=== PATIENT | female | born 1970 | race Caucasian/White ===

== ENCOUNTER 2019-02-12 22:22 | Observation (INO) ==
[2019-02-12] MEDS ORDERED: Nitroglycerin 1 INCH/GM PACKET TP ONE (23:26)
[2019-02-12] MEDS ORDERED: Aspirin 81 MG TAB.CHEW PO ONE (23:26)
[2019-02-12] MEDS ORDERED: 0.9 % Sodium Chloride 500 ML IVC ONE (23:26)
[2019-02-13 00:18] LABS: BUN/Creatinine Ratio 24 (6-26); Blood Urea Nitrogen 22 mg/dL (6-20); Calcium 9.5 mg/dL (8.6-10.3); Carbon Dioxide 26 mEq/L (23-29); Chloride 105 mEq/L (98-107); Glucose 103 mg/dL (70-105); Osmolality,Calculated 290 (280-300); Potassium 4.1 mEq/L (3.5-5.1); Sodium 138 mEq/L (136-145); Troponin I < 0.03 ng/mL (< 0.04); eGFR For African Americans > 60 (> 60); eGFR For Non-African Americans > 60 (> 60)
[2019-02-13 00:33] LABS: Prothrombin Time 11.2 Seconds (9.4-12.1)
[2019-02-13 00:35] LABS: Basophils # 0.1 K/mcL (0.0-0.2); Basophils % 0.6 %; Eosinophils % 0.1 %; Hematocrit 44.5 % (35.3-44.9); Immature Granulocytes % 0.9 % (0-4); Lymphocytes # 1.3 K/mcL (0.6-4.6); Lymphocytes % 15.1 %; Mean Corpuscular HGB Conc 33.7 g/dL (31.6-35.5); Mean Platelet Volume 9.6 fL (9.4-12.4); Monocytes # 0.6 K/mcL (0.0-1.3); Monocytes % 6.4 %; Neutrophils # 6.6 K/mcL (1.6-8.9); Platelet Count 278 K/mcL (140-400); Red Blood Count 4.54 M/mcL (3.82-4.97); Red Cell Distribution Width 13.4 % (11.5-14.5); Segmented Neutrophils % 76.9 %; White Blood Count 8.6 K/mcL (4.3-11.1)
[2019-02-13] MEDS ORDERED: Naloxone 0.4 MG/ML INJ IVP PRN (01:24)
[2019-02-13 03:17] LABS: Hematocrit 44.1 % (35.3-44.9); Hemoglobin 14.2 g/dL (11.5-15.4); Mean Corpuscular HGB Conc 32.2 g/dL (31.6-35.5); Mean Corpuscular Hemoglobin 32.2 pg (28.0-33.3); Mean Platelet Volume 9.6 fL (9.4-12.4); Platelet Count 266 K/mcL (140-400); Red Blood Count 4.41 M/mcL (3.82-4.97); Red Cell Distribution Width 13.3 % (11.5-14.5); White Blood Count 10.4 K/mcL (4.3-11.1)
[2019-02-13 03:21] LABS: Activated Partial Thrombo Time 26.8 Seconds (26.0-36.0)
[2019-02-13] MEDS: *HR* HYDROcodone/Acet 7.5/325 mg TABLET PO SCH ×6 (03:22→20:59)
[2019-02-13 03:37] LABS: BUN/Creatinine Ratio 29 (6-26); Blood Urea Nitrogen 21 mg/dL (6-20); Calcium 9.3 mg/dL (8.6-10.3); Carbon Dioxide 23 mEq/L (23-29); Chloride 106 mEq/L (98-107); Chol/HDL Ratio 6.1 (0-4.9); Cholesterol 201 mg/dL (< 200); Glucose 103 mg/dL (70-105); HDL Cholesterol 33 mg/dL (40-59); LDL Cholesterol,Calculated 111 mg/dL (0-99); Osmolality,Calculated 291 (280-300); Sodium 139 mEq/L (136-145); Triglycerides 285 mg/dL (< 150); eGFR For African Americans > 60 (> 60); eGFR For Non-African Americans > 60 (> 60)
[2019-02-13 03:50] LABS: Thyroid Stimulating Hormone 0.421 mcIU/mL (0.340-5.600)
[2019-02-13] MEDS: *HR* Heparin 5,000 UNIT/ML VIAL SQ SCH ×3 (05:28→20:59)
[2019-02-13] MEDS ORDERED: Regadenoson 0.4 MG/5 ML SYRINGE IVP ONE (07:26)
[2019-02-13] MEDS: amLODIPine 5 MG TABLET PO SCH (10:24)
[2019-02-13] MEDS: hydroCHLOROthiazide 25 MG TABLET PO SCH (10:25)
[2019-02-13] MEDS: Lisinopril 20 MG TABLET PO SCH (10:25)
[2019-02-13] MEDS: Gabapentin 400 MG CAPSULE PO SCH ×4 (10:25→20:59)
[2019-02-13] MEDS: Metoprolol 100 MG TABLET PO SCH (10:25)
[2019-02-14] MEDS: *HR* Heparin 5,000 UNIT/ML VIAL SQ SCH ×2 (05:02→13:30)
[2019-02-14] MEDS: *HR* HYDROcodone/Acet 7.5/325 mg TABLET PO SCH ×3 (05:17→17:11)
[2019-02-14 06:55] LABS: Hemoglobin 13.5 g/dL (11.5-15.4); Mean Corpuscular HGB Conc 32.1 g/dL (31.6-35.5); Mean Corpuscular Hemoglobin 32.2 pg (28.0-33.3); Mean Corpuscular Volume 100.2 fL (83.0-100.0); Mean Platelet Volume 9.5 fL (9.4-12.4); Platelet Count 228 K/mcL (140-400); Red Blood Count 4.19 M/mcL (3.82-4.97); Red Cell Distribution Width 13.3 % (11.5-14.5); White Blood Count 7.5 K/mcL (4.3-11.1)
[2019-02-14 07:27] LABS: BUN/Creatinine Ratio 28 (6-26); Blood Urea Nitrogen 19 mg/dL (6-20); Calcium 9.3 mg/dL (8.6-10.3); Carbon Dioxide 26 mEq/L (23-29); Chloride 103 mEq/L (98-107); Glucose 94 mg/dL (70-105); Osmolality,Calculated 290 (280-300); Potassium 3.9 mEq/L (3.5-5.1); Sodium 139 mEq/L (136-145); eGFR For African Americans > 60 (> 60); eGFR For Non-African Americans > 60 (> 60)
[2019-02-14] MEDS: Gabapentin 400 MG CAPSULE PO SCH ×3 (08:22→17:11)
[2019-02-14] MEDS: amLODIPine 5 MG TABLET PO SCH (08:22)
[2019-02-14] MEDS: Metoprolol 100 MG TABLET PO SCH (08:22)
[2019-02-14] MEDS: hydroCHLOROthiazide 25 MG TABLET PO SCH (08:22)
[2019-02-14] MEDS: Lisinopril 20 MG TABLET PO SCH (08:22)
[2019-02-14 15:45] VITALS: BP 141/82
[2019-02-15] MEDS ORDERED: Aspirin 81 MG TAB.CHEW PO SCH (09:00)
== END 2019-02-14 18:23 | disposition home or self-care (01) ==
LOC: 3BNU 22:22 → EMEROOARM 22:22 → SUATTDRO 02-13 01:11 → 3BNU 02-13 02:00
PROVIDERS: ADMIT Internal Medicine; ATTEND Internal Medicine

== ENCOUNTER 2019-02-25 22:24 | Observation (INO) ==
[2019-02-25 22:52] LABS: Bilirubin,Urine Negative (Negative); Blood,Urine Negative (Negative); Clarity,Urine Cloudy (Clear); Color,Urine Yellow (Yellow); Glucose,Urine (UA) Normal (Normal); Ketones,Urine Negative (Negative); Leukocyte Esterase,Urine Moderate (Negative); Nitrite,Urine Positive (Negative); Protein,Urine Trace mg/dL (Neg-Trace); Specific Gravity,Urine 1.023 (1.010-1.025); Urobilinogen,Urine Normal (Normal)
[2019-02-25 22:54] LABS: Bacteria,Urine Many per hpf (None-Few); Hyaline Casts,Urine Few per lpf (None-Few); Squamous Epithelial Cell,Urine Many per lpf (None-Few); WBC,Urine 30-50 per hpf (0-3)
[2019-02-25 22:58] LABS: Basophils % 0.4 %; Eosinophils % 0.2 %; Hematocrit 43.3 % (35.3-44.9); Hemoglobin 14.4 g/dL (11.5-15.4); Immature Granulocytes % 0.7 % (0-4); Lymphocytes # 2.4 K/mcL (0.6-4.6); Lymphocytes % 24.8 %; Mean Corpuscular HGB Conc 33.3 g/dL (31.6-35.5); Mean Corpuscular Hemoglobin 32.7 pg (28.0-33.3); Mean Corpuscular Volume 98.4 fL (83.0-100.0); Mean Platelet Volume 9.4 fL (9.4-12.4); Monocytes # 0.7 K/mcL (0.0-1.3); Monocytes % 6.9 %; Neutrophils # 6.3 K/mcL (1.6-8.9); Platelet Count 288 K/mcL (140-400); Red Cell Distribution Width 13.4 % (11.5-14.5); White Blood Count 9.5 K/mcL (4.3-11.1)
[2019-02-25 23:04] LABS: RBC,Urine 0-3 per hpf (0-3)
[2019-02-25 23:18] LABS: Alanine Aminotransferase 27 Units/L (7-52); Albumin/Globulin Ratio 1.3 (1.1-2.2); Alkaline Phosphatase 78 Units/L (34-104); Amylase 33 Units/L (29-103); Aspartate Amino Transferase 16 Units/L (13-39); BUN/Creatinine Ratio 27 (6-26); Bilirubin,Direct 0.1 mg/dL (0.0-0.2); Bilirubin,Indirect 0.2 mg/dL (0.0-1.0); Bilirubin,Total 0.3 mg/dL (0.3-1.0); Blood Urea Nitrogen 23 mg/dL (6-20); Calcium 9.2 mg/dL (8.6-10.3); Carbon Dioxide 24 mEq/L (23-29); Chloride 106 mEq/L (98-107); Globulin 3.1 g/dL (2.4-3.5); Glucose 89 mg/dL (70-105); Lipase 21 Units/L (11-82); Osmolality,Calculated 291 (280-300); Sodium 139 mEq/L (136-145); Total Protein 7.1 g/dL (6.4-8.9); eGFR For African Americans > 60 (> 60); eGFR For Non-African Americans > 60 (> 60)
[2019-02-25] MEDS ORDERED: *HR* FentaNYL (PF) 100 MCG/2 ML VIAL IVP ONE (23:36)
[2019-02-25] MEDS ORDERED: 0.9 % Sodium Chloride 1,000 ML IVC ONE (23:36)
[2019-02-25] MEDS ORDERED: Ondansetron 4 MG/2 ML VIAL IVP ONE (23:36)
[2019-02-25] MEDS ORDERED: 0.9 % Sodium Chloride 1,000 ML IVC SCH (23:45)
[2019-02-26] MEDS ORDERED: Ampicillin/Sulbactam 3,000 MG in 0.9 % Sodium Chloride Mini Bag 100 ML IVPB SCH ×2
[2019-02-26] MEDS: Ampicillin/Sulbactam 3,000 MG in 0.9 % Sodium Chloride Mini Bag 100 ML IVPB SCH ×3 (06:03→17:27)
[2019-02-26] MEDS ORDERED: *HR* Promethazine 25 MG/ML VIAL IVP ONE (06:31)
[2019-02-26] MEDS ORDERED: Dexamethasone 4 MG/ML VIAL ONE (10:23)
[2019-02-26] MEDS ORDERED: *HR* Succinylcholine 200 MG/10 ML VIAL IVP ONE (10:23)
[2019-02-26] MEDS ORDERED: Ondansetron 4 MG/2 ML VIAL ONE (10:23)
[2019-02-26] MEDS ORDERED: *HR* Rocuronium Bromide 50 MG/5 ML VIAL ONE ×2 (10:23→11:59)
[2019-02-26] MEDS ORDERED: Lidocaine HCL 4 ML Topical Solution (Laryng-O-Jet Kit Sterile Pak) TP ONE (10:23)
[2019-02-26] MEDS ORDERED: *HR* Propofol 200 MG/20 ML VIAL IVP ONE (10:23)
[2019-02-26] MEDS ORDERED: Lidocaine -MPF 2% 2 ML VIAL ONE (10:23)
[2019-02-26] MEDS ORDERED: *HR* FentaNYL (PF) 100 MCG/2 ML VIAL ONE (10:24)
[2019-02-26] MEDS ORDERED: Ketorolac 30 MG/ML VIAL ONE (11:21)
[2019-02-26] MEDS ORDERED: *HR* Metoprolol 5 MG/5 ML VIAL IVP ONE (11:32)
[2019-02-26] MEDS ORDERED: *HR* PHENYLEPHRINE 1,000 MCG/10 ML SYRINGE IVP ONE (11:34)
[2019-02-26] MEDS ORDERED: *HR* Meperidine 25 MG/ML SYRINGE IVP PRN (12:45)
[2019-02-26] MEDS ORDERED: *HR* Midazolam HCl 2 MG/2 ML VIAL IVP PRN (12:45)
[2019-02-26] MEDS ORDERED: *HR* HYDROmorphone (PF) 1 MG/ML SYRINGE ONE (12:46)
[2019-02-26] MEDS: *HR* HYDROmorphone (PF) 1 MG/ML SYRINGE IVP PRN ×4 (12:58→13:18)
[2019-02-26] MEDS ORDERED: Acetaminophen IV 1,000 MG/100 ML INFUS..BTL IVPB ONE (13:13)
[2019-02-26] MEDS: *HR* FentaNYL (PF) 100 MCG/2 ML VIAL IVP PRN ×2 (13:27→13:33)
[2019-02-26] MEDS: traMADol 50 MG TABLET PO PRN ×2 (15:21→20:27)
[2019-02-26] MEDS: Ketorolac 15 MG/ML VIAL IVP SCH (17:27)
[2019-02-26] MEDS ORDERED: Melatonin 3 MG TABLET PO SCH (22:30)
[2019-02-26] MEDS: Gabapentin 400 MG CAPSULE PO SCH (22:30)
[2019-02-27] MEDS: Ketorolac 15 MG/ML VIAL IVP SCH ×3 (00:29→11:36)
[2019-02-27] MEDS: Ampicillin/Sulbactam 3,000 MG in 0.9 % Sodium Chloride Mini Bag 100 ML IVPB SCH ×4 (00:30→11:37)
[2019-02-27] MEDS: traMADol 50 MG TABLET PO PRN (07:38)
[2019-02-27] MEDS: Gabapentin 400 MG CAPSULE PO SCH ×2 (07:39→11:36)
[2019-02-27] MEDS ORDERED: Aspirin 81 MG TAB.CHEW PO SCH (09:00)
[2019-02-27] MEDS ORDERED: Lisinopril 20 MG TABLET PO SCH (09:00)
[2019-02-27] MEDS ORDERED: hydroCHLOROthiazide 25 MG TABLET PO SCH (09:00)
[2019-02-27] MEDS ORDERED: amLODIPine 5 MG TABLET PO SCH (09:00)
[2019-02-27] MEDS ORDERED: Metoprolol XL (24 HR) Succ 50 MG TAB.ER.24H PO SCH (09:00)
[2019-02-27] MEDS ORDERED: Isosorbide MONOnitrate (24 HR) 30 MG TAB.ER.24H PO SCH (09:00)
[2019-02-27 10:41] VITALS: BP 118/71
== END 2019-02-27 14:05 | disposition home or self-care (01) ==
LOC: 3ANU 22:24 → EMEROOARM 22:24 → 3ANU 02-26 01:42
PROVIDERS: ADMIT Surgery; ATTEND Surgery